=== PATIENT | female | born 1970 | race Caucasian/White ===

== ENCOUNTER → 2016-09-12 | Outpatient (REF) | payer BC ==
[2016-09-12 13:43] LABS: EOS # 0.1 K/mm3 (0.0-0.50); LARGE UNSTAINED CELL # 0.1 K/mm3 (0.0-0.4); LYMPH # 1.2 K/mm3 (1.5-4.5); MEAN CORPUSCULAR HEMOGLOBIN 31.1 pg (27.0-33.0); MEAN CORPUSCULAR HGB CONC 33.4 g/dl (32.0-36.5); MEAN CORPUSCULAR VOLUME 93.1 fl (80.0-96.0); MONO # 0.2 K/mm3 (0.0-0.8); MONO % 6.3 % (0.0-5.0); NEUTROPHILS # 1.7 K/mm3 (1.8-7.7); NEUTROPHILS % 53.7 % (36.0-66.0); PLATELET COUNT, AUTOMATED 153 k/mm3 (150-450); RED CELL DISTRIBUTION WIDTH 12.9 % (11.5-14.5); WHITE BLOOD COUNT 3.2 K/mm3 (4.0-10.0)
[2016-09-12 13:46] LABS: ALBUMIN 3.4 GM/DL (3.2-5.2); ALBUMIN/GLOBULIN RATIO 1.26 (1.00-1.93); ALKALINE PHOSPHATASE 76 U/L (45-117); ALT/SGPT 17 U/L (12-78); ANION GAP 7 MEQ/L (8-16); AST/SGOT 9 U/L (15-37); BILIRUBIN,TOTAL 0.4 MG/DL (0.2-1.0); BLOOD UREA NITROGEN 13 MG/DL (7-18); CALCIUM LEVEL 8.3 MG/DL (8.5-10.1); CARBON DIOXIDE LEVEL 29 MEQ/L (21-32); CHLORIDE LEVEL 107 MEQ/L (98-107); CREATININE FOR GFR 0.72 MG/DL (0.55-1.02); FERRITIN 46 NG/ML (8-252); GLOMERULAR FILTRATION RATE > 60.0 (>58); GLUCOSE, FASTING 51 MG/DL (70-105); MAGNESIUM LEVEL 1.9 MG/DL (1.8-2.4); PERCENT SATURATION 36.2 % (13.2-37.4); POTASSIUM SERUM 4.2 MEQ/L (3.5-5.1); SODIUM LEVEL 143 MEQ/L (136-145); TOTAL IRON BINDING CAPACITY 293 UG/DL (250-450); TOTAL PROTEIN 6.1 GM/DL (6.4-8.2)
[2016-09-13 11:44] LABS: PRETREATED FOLATE FOR RBCFOL 9.3 NG/ML
== END ==
LOC: M SFHCPLAZ 09:46
PROVIDERS: ATTEND Family Medicine
DX: D50.9 Iron deficiency anemia, unspecified (principal); E83.00 Disorder of copper metabolism, unspecified; E55.9 Vitamin D deficiency, unspecified; E16.1 Other hypoglycemia; E53.8 Deficiency of other specified B group vitamins; Z98.84 Bariatric surgery status

== ENCOUNTER → 2018-03-01 | Outpatient (CLI) | payer BC | LOC: M LAB 18:06 | DX: M47.22 Other spondylosis with radiculopathy, cervical region (principal) | CPT/HCPCS: 72052 ==

== ENCOUNTER → 2018-03-02 | Outpatient (CLI) | payer BC ==
[2018-03-02 08:24] LABS: BASO % 0.9 % (0.0-1.0); EOS # 0.1 10^3/uL (0.0-0.50); EOS % 3.1 % (0.0-3.0); HEMATOCRIT 36.4 % (36.0-47.0); HEMOGLOBIN 11.8 g/dl (12.0-15.5); IMMATURE GRANULOCYTE % 0.3 % (0-3.0); LYMPH % 31.5 % (24.0-44.0); MEAN CORPUSCULAR HEMOGLOBIN 28.3 pg (27.0-33.0); MEAN CORPUSCULAR HGB CONC 32.4 g/dl (32.0-36.5); MEAN CORPUSCULAR VOLUME 87.3 fl (80.0-96.0); MONO # 0.2 10^3/uL (0.0-0.8); MONO % 7.2 % (0.0-5.0); NEUTROPHILS # 1.8 10^3/uL (1.8-7.7); PLATELET COUNT, AUTOMATED 211 10^3/uL (150-450); RED BLOOD COUNT 4.17 10^6/uL (4.00-5.40); RED CELL DISTRIBUTION WIDTH 12.9 % (11.5-14.5); WHITE BLOOD COUNT 3.2 10^3/uL (4.0-10.0)
[2018-03-02 08:25] LABS: HEMATOCRIT 36.4 % (36.0-47.0)
[2018-03-02 08:58] LABS: ALBUMIN 3.5 GM/DL (3.2-5.2); ALBUMIN/GLOBULIN RATIO 1.25 (1.00-1.93); ALKALINE PHOSPHATASE 67 U/L (45-117); ALT/SGPT 14 U/L (12-78); ANION GAP 7 MEQ/L (8-16); AST/SGOT 12 U/L (7-37); BILIRUBIN,TOTAL 0.4 MG/DL (0.2-1.0); BLOOD UREA NITROGEN 13 MG/DL (7-18); CALCIUM LEVEL 8.6 MG/DL (8.5-10.1); CARBON DIOXIDE LEVEL 28 MEQ/L (21-32); CHLORIDE LEVEL 109 MEQ/L (98-107); CREATININE FOR GFR 0.82 MG/DL (0.55-1.30); FERRITIN 8 NG/ML (8-252); GLOMERULAR FILTRATION RATE > 60.0 (>58); GLUCOSE, FASTING 81 MG/DL (70-100); IRON (FE) 91 UG/DL (50-170); PERCENT SATURATION 25.1 % (13.2-45.0); POTASSIUM SERUM 4.2 MEQ/L (3.5-5.1); SODIUM LEVEL 144 MEQ/L (136-145); TOTAL IRON BINDING CAPACITY 363 UG/DL (250-450); TOTAL PROTEIN 6.3 GM/DL (6.4-8.2)
[2018-03-02 11:01] LABS: TOTAL 25(OH) VITAMIN D 20.7 NG/ML (30.0-100.0)
[2018-03-02 11:30] LABS: RBC FOLATE 980.8 NG/ML (280-791)
[2018-03-08 11:15] LABS: COPPER, RBC 0.52 ug/mL (0.50-1.00)
[2018-03-08 11:15] LABS: INSULIN LEVEL 3.6 uIU/mL (2.6-24.9)
== END ==
LOC: M LAB 07:15
DX: E53.8 Deficiency of other specified B group vitamins (principal); D50.9 Iron deficiency anemia, unspecified; E16.1 Other hypoglycemia; E83.00 Disorder of copper metabolism, unspecified; E51.9 Thiamine deficiency, unspecified
CPT/HCPCS: 82525

== ENCOUNTER → 2019-12-09 | Outpatient (CLI) | payer SELFPAY ==
[~2019-12-09] MED LIST: AMMO12CR7 TOP; BENA25CA4 PO; CYAN1000VL; D 50CAP PO
== END ==
LOC: M LABSMTC 11:57
PROVIDERS: ATTEND Pediatrics
DX: Z20.828 Contact with and (suspected) exposure to other viral communicable diseases (principal); Z11.59 Encounter for screening for other viral diseases

== ENCOUNTER → 2021-04-29 | Outpatient (CLI) | payer OTHER, SELFPAY ==
[~2021-04-29] MED LIST changes: +BARIUM SULFATE 700 MG TABLET (E-Z-DISK) As Ordered ONE; +E-Z-PAQUE 96% w/w SUSP 176GM BTL As Ordered ONE; +VARIBAR NECTAR 40% w/v 240ML SUSP BTL As Ordered ONE; +VARIBAR PUDDING 40% w/v 230ML TUBE As Ordered ONE
== END ==
LOC: M RAD 08:00
PROVIDERS: ATTEND Otolaryngology
DX: R47.02 Dysphasia (principal)

== ENCOUNTER → 2021-05-20 | Outpatient (CLI) | payer OTHER ==
[~2021-05-20] MED LIST changes: -BARIUM SULFATE 700 MG TABLET (E-Z-DISK) As Ordered ONE; -E-Z-PAQUE 96% w/w SUSP 176GM BTL As Ordered ONE; -VARIBAR NECTAR 40% w/v 240ML SUSP BTL As Ordered ONE; -VARIBAR PUDDING 40% w/v 230ML TUBE As Ordered ONE
[2021-05-20 15:16] LABS: BASO # 0.1 10^3/uL (0.0-0.2); BASO % 1.3 % (0.0-1.0); EOS # 0.3 10^3/uL (0.0-0.5); EOS % 4.8 % (0.0-3.0); HEMATOCRIT 30.5 % (36.0-47.0); HEMOGLOBIN 8.2 g/dl (12.0-15.5); LYMPH # 1.8 10^3/uL (1.5-5.0); LYMPH % 33.1 % (24.0-44.0); MEAN CORPUSCULAR HEMOGLOBIN 18.4 pg (27.0-33.0); MEAN CORPUSCULAR HGB CONC 26.9 g/dl (32.0-36.5); MEAN CORPUSCULAR VOLUME 68.4 fl (80.0-96.0); MONO # 0.5 10^3/uL (0.0-0.8); MONO % 9.1 % (2.0-8.0); NEUTROPHILS # 2.7 10^3/uL (1.5-8.5); NEUTROPHILS % 50.8 % (36.0-66.0); PLATELET COUNT, AUTOMATED 402 10^3/uL (150-450); RED BLOOD COUNT 4.46 10^6/uL (4.00-5.40); WHITE BLOOD COUNT 5.4 10^3/uL (4.0-10.0)
[2021-05-20 15:38] LABS: BLOOD UREA NITROGEN 6 MG/DL (7-18); CALCIUM LEVEL 8.9 MG/DL (8.5-10.1); CARBON DIOXIDE LEVEL 27 MEQ/L (21-32); CHLORIDE LEVEL 108 MEQ/L (98-107); CREATININE FOR GFR 0.96 MG/DL (0.55-1.30); GLOMERULAR FILTRATION RATE > 60.0 (>51); GLUCOSE, FASTING 83 MG/DL (70-100); POTASSIUM SERUM 4.1 MEQ/L (3.5-5.1); SODIUM LEVEL 141 MEQ/L (136-145)
== END ==
LOC: M PLALAB 12:31
PROVIDERS: ATTEND Physician Assistant
DX: A04.5 Campylobacter enteritis (principal); D50.9 Iron deficiency anemia, unspecified; A08.0 Rotaviral enteritis

== ENCOUNTER 2021-05-24 10:30 | Outpatient (CLI) | payer OTHER ==
[~2021-05-24] VITALS: Ht 160 cm; Wt 70.2 kg
[~2021-05-24 10:30] MED LIST changes: +ALBUTEROL SULFATE 2.5 MG/0.5 ML INH NEB SOLN INH PRN; +EPINEPHrine INJ 1 MG/ML 1ML AMP IM PRN; +diphenhydrAMINE 50MG/ML VIAL (J1200) IV PRN; +methylPREDNISolone 125MG 2ML VIAL IV PRN
[2021-05-24] MEDS ORDERED: NS 1,000 ML IV SCH (12:15)
[2021-05-24] MEDS ORDERED: FERRIC CARBOXYMALTOSE INJ 750 MG, VIAL MATE ADAPTER 1 EACH in NS 250 ML IV ONE (12:15)
[2021-05-24 12:28] VITALS: BP 142/66
[2021-05-24 13:51] VITALS: BP 114/57
== END 2021-05-24 13:53 | disposition home or self-care (01) ==
LOC: M INFU 10:30
PROVIDERS: ATTEND Physician Assistant
DX: D50.9 Iron deficiency anemia, unspecified (principal)
CPT/HCPCS: 96365; J1439

== ENCOUNTER → 2021-06-19 | Outpatient (CLI) | payer OTHER ==
[~2021-06-19] MED LIST changes: -ALBUTEROL SULFATE 2.5 MG/0.5 ML INH NEB SOLN INH PRN; -EPINEPHrine INJ 1 MG/ML 1ML AMP IM PRN; -diphenhydrAMINE 50MG/ML VIAL (J1200) IV PRN; -methylPREDNISolone 125MG 2ML VIAL IV PRN
[2021-06-19 13:51] LABS: BASO # 0.1 10^3/uL (0.0-0.2); BASO % 1.4 % (0.0-1.0); EOS # 0.1 10^3/uL (0.0-0.5); EOS % 2.1 % (0.0-3.0); HEMATOCRIT 35.5 % (36.0-47.0); HEMATOCRIT 36.9 % (36.0-47.0); HEMOGLOBIN 10.5 g/dl (12.0-15.5); LYMPH # 1.4 10^3/uL (1.5-5.0); LYMPH % 32.8 % (24.0-44.0); MEAN CORPUSCULAR HEMOGLOBIN 23.2 pg (27.0-33.0); MEAN CORPUSCULAR HGB CONC 29.6 g/dl (32.0-36.5); MEAN CORPUSCULAR VOLUME 78.5 fl (80.0-96.0); MONO # 0.3 10^3/uL (0.0-0.8); MONO % 6.6 % (2.0-8.0); NEUTROPHILS # 2.4 10^3/uL (1.5-8.5); NEUTROPHILS % 57.1 % (36.0-66.0); PLATELET COUNT, AUTOMATED 207 10^3/uL (150-450); RED BLOOD COUNT 4.52 10^6/uL (4.00-5.40); WHITE BLOOD COUNT 4.3 10^3/uL (4.0-10.0)
[2021-06-19 14:11] LABS: HEMOGLOBIN A1c 4.5 %
[2021-06-19 14:27] LABS: ALBUMIN 3.4 GM/DL (3.2-5.2); ALT/SGPT 15 U/L (12-78); BILIRUBIN,TOTAL 0.3 MG/DL (0.2-1.0); BLOOD UREA NITROGEN 11 MG/DL (7-18); CALCIUM LEVEL 8.6 MG/DL (8.5-10.1); CARBON DIOXIDE LEVEL 29 MEQ/L (21-32); CHLORIDE LEVEL 110 MEQ/L (98-107); CHOLESTEROL LEVEL 171 MG/DL (<200); CHOLESTEROL RISK RATIO 2.442 (<5); CREATININE FOR GFR 0.69 MG/DL (0.55-1.30); FERRITIN 40 NG/ML (8-252); FREE T4 0.95 NG/DL (0.76-1.46); GLOMERULAR FILTRATION RATE > 60.0 (>51); GLUCOSE, FASTING 88 MG/DL (70-100); HDL CHOLESTEROL 70 MG/DL (>40); LDL CHOLESTEROL 90 MG/DL (<100); NON-HDL-C 101 MG/DL; POTASSIUM SERUM 4.4 MEQ/L (3.5-5.1); SODIUM LEVEL 142 MEQ/L (136-145); TOTAL PROTEIN 6.2 GM/DL (6.4-8.2); TRIGLYCERIDES LEVEL 56 MG/DL (<150)
[2021-06-19 14:50] LABS: MICROCYTOSIS 1+; OVALOCYTES 1+; POIKILOCYTOSIS 1+
[2021-06-19 14:51] LABS: PLATELET ESTIMATE NORMAL (NORMAL)
[2021-06-21 11:54] LABS: PTH INTACT 143.8 PG/ML (18.5-88.0); TOTAL 25(OH) VITAMIN D 9.9 NG/ML (30.0-100.0)
[2021-06-21 11:55] LABS: VITAMIN B12 LEVEL 176 PG/ML (247-911)
== END ==
LOC: M LAB 13:25
PROVIDERS: ATTEND Family Medicine
DX: E53.8 Deficiency of other specified B group vitamins (principal); E51.9 Thiamine deficiency, unspecified; D50.9 Iron deficiency anemia, unspecified; E66.3 Overweight

== ENCOUNTER → 2023-03-27 | Outpatient (CLI) | payer OTHER ==
[2023-03-27 14:14] LABS: BASO # 0.1 10^3/uL (0.0-0.2); BASO % 1.6 % (0.0-1.0); EOS # 0.1 10^3/uL (0.0-0.5); EOS % 2.5 % (0.0-3.0); HEMATOCRIT 38.9 % (36.0-47.0); LYMPH % 38.2 % (24.0-44.0); MEAN CORPUSCULAR HEMOGLOBIN 25.2 pg (27.0-33.0); MEAN CORPUSCULAR HGB CONC 30.8 g/dl (32.0-36.5); MEAN CORPUSCULAR VOLUME 81.7 fl (80.0-96.0); MONO # 0.5 10^3/uL (0.0-0.8); MONO % 9.6 % (2.0-8.0); NEUTROPHILS # 2.5 10^3/uL (1.5-8.5); NEUTROPHILS % 47.7 % (36.0-66.0); PLATELET COUNT, AUTOMATED 246 10^3/uL (150-450); RED BLOOD COUNT 4.76 10^6/uL (4.00-5.40); WHITE BLOOD COUNT 5.1 10^3/uL (4.0-10.0)
[2023-03-27 14:26] LABS: HEMATOCRIT 39.2 % (36.0-47.0)
[2023-03-27 14:38] LABS: ALBUMIN 3.8 G/DL (3.2-5.2); ALKALINE PHOSPHATASE 87 U/L (46-116); ALT/SGPT 15 U/L (7.0-40); AST/SGOT 19 U/L (<34); BILIRUBIN,TOTAL 0.4 MG/DL (0.3-1.2); BLOOD UREA NITROGEN 13 MG/DL (9-23); CALCIUM LEVEL 8.7 MG/DL (8.5-10.1); CARBON DIOXIDE LEVEL 28 MMOL/L (20-31); CHLORIDE LEVEL 107 MMOL/L (98-107); CREATININE FOR GFR 0.72 MG/DL (0.55-1.30); GLOMERULAR FILTRATION RATE > 60.0 (>51); GLUCOSE, FASTING 75 MG/DL (60-100); POTASSIUM SERUM 4.3 MMOL/L (3.5-5.1); SODIUM LEVEL 140 MMOL/L (136-145)
[2023-03-27 14:39] LABS: FREE T4 1.07 NG/DL (0.89-1.76); PTH INTACT 121.1 PG/ML (18.5-88.0)
[2023-03-27 14:40] LABS: FERRITIN 7.1 NG/ML (7.3-270.7); FOLLICLE STIMULATING HORMONE 35.8 mIU/ML; LUTEINIZING HORMONE 20.8 mIU/ML; THYROID STIMULATING HORMONE 2.436 uIU/ML (0.55-4.78)
[2023-03-27 14:41] LABS: VITAMIN B12 LEVEL 271 PG/ML (211-911)
== END ==
LOC: M PLALAB 11:17
PROVIDERS: ATTEND Family Medicine
DX: D50.9 Iron deficiency anemia, unspecified (principal)

== ENCOUNTER → 2023-03-28 | Outpatient (CLI) | payer OTHER | LOC: M WHC 07:35 | PROVIDERS: ATTEND Family Medicine | DX: Z12.31 Encounter for screening mammogram for malignant neoplasm of breast (principal); M81.0 Age-related osteoporosis without current pathological fracture ==

== ENCOUNTER → 2023-06-26 | Outpatient (REF) | payer BC, OTHER | LOC: M SFHCWAGY 17:36 | PROVIDERS: ATTEND Nurse Practitioner Family | DX: Z12.4 Encounter for screening for malignant neoplasm of cervix (principal) | CPT/HCPCS: 87624; G0123 ==

== ENCOUNTER → 2023-07-31 | Outpatient (REF) | payer BC | LOC: M SFHCPLAZ 12:44 | PROVIDERS: ATTEND Family Medicine | DX: E55.9 Vitamin D deficiency, unspecified (principal); E83.00 Disorder of copper metabolism, unspecified; D50.9 Iron deficiency anemia, unspecified; E53.8 Deficiency of other specified B group vitamins; E16.1 Other hypoglycemia ==

== ENCOUNTER → 2023-09-22 | Outpatient (CLI) | payer BC ==
[2023-09-22 12:17] LABS: BASO # 0.1 10^3/uL (0.0-0.2); BASO % 1.7 % (0.0-1.0); EOS # 0.5 10^3/uL (0.0-0.5); EOS % 9.8 % (0.0-3.0); HEMATOCRIT 43.1 % (36.0-47.0); HEMOGLOBIN 14.5 g/dl (12.0-15.5); LYMPH # 1.6 10^3/uL (1.5-5.0); LYMPH % 33.6 % (24.0-44.0); MEAN CORPUSCULAR HEMOGLOBIN 31.3 pg (27.0-33.0); MEAN CORPUSCULAR HGB CONC 33.7 g/dl (32.0-36.5); MEAN CORPUSCULAR VOLUME 92.7 fl (80.0-96.0); MONO # 0.3 10^3/uL (0.0-0.8); MONO % 5.8 % (2.0-8.0); NEUTROPHILS # 2.3 10^3/uL (1.5-8.5); NEUTROPHILS % 48.9 % (36.0-66.0); PLATELET COUNT, AUTOMATED 189 10^3/uL (150-450); RED BLOOD COUNT 4.64 10^6/uL (4.00-5.40); WHITE BLOOD COUNT 4.8 10^3/uL (4.0-10.0)
[2023-09-22 12:37] LABS: HEMOGLOBIN A1c 5.1 % (4.0-6.0)
[2023-09-22 12:44] LABS: ALBUMIN 3.7 G/DL (3.2-5.2); ALKALINE PHOSPHATASE 80 U/L (46-116); ALT/SGPT 23 U/L (7.0-40); AST/SGOT 14 U/L (<34); BILIRUBIN,TOTAL 0.5 MG/DL (0.3-1.2); BLOOD UREA NITROGEN 12 MG/DL (9-23); CALCIUM LEVEL 9.3 MG/DL (8.5-10.1); CARBON DIOXIDE LEVEL 32 MMOL/L (20-31); CHLORIDE LEVEL 105 MMOL/L (98-107); CHOLESTEROL LEVEL 187 MG/DL (<200); CHOLESTEROL RISK RATIO 2.37 (<5); CREATININE FOR GFR 0.84 MG/DL (0.55-1.30); GLOMERULAR FILTRATION RATE > 60.0 (>51); GLUCOSE, FASTING 91 MG/DL (60-100); HDL CHOLESTEROL 78.8 MG/DL (>40); LDL CHOLESTEROL 97.2 MG/DL (<100); NON-HDL-C 108.2 MG/DL; POTASSIUM SERUM 4.8 MMOL/L (3.5-5.1); PTH INTACT 58.5 PG/ML (18.5-88.0); SODIUM LEVEL 143 MMOL/L (136-145); TOTAL PROTEIN 6.5 G/DL (5.7-8.2); TRIGLYCERIDES LEVEL 55 MG/DL (<150)
[2023-09-22 12:46] LABS: FERRITIN 27.1 NG/ML (7.3-270.7); TOTAL 25(OH) VITAMIN D 24.4 NG/ML (20.0-100.0); VITAMIN B12 LEVEL 250 PG/ML (211-911)
[2023-09-26 09:07] LABS: COPPER, RBC 0.64 ug/mL (0.50-1.00)
== END ==
LOC: M LAB 11:26
PROVIDERS: ATTEND Family Medicine
DX: E55.9 Vitamin D deficiency, unspecified (principal); E83.00 Disorder of copper metabolism, unspecified; D50.9 Iron deficiency anemia, unspecified; E53.8 Deficiency of other specified B group vitamins

== ENCOUNTER 2023-10-09 11:36 | Outpatient (CLI) | payer BC ==
[~2023-10-09] VITALS: Ht 160 cm; Wt 78.0 kg
[~2023-10-09 11:36] MED LIST changes: +ALBUTEROL SULFATE 2.5MG/0.5ML INH NEB SOLN INH PRN; +EPINEPHrine INJ 1 MG/ML 1ML AMP IM PRN; +NS 1,000 ML IV SCH; +diphenhydrAMINE 50MG/ML VIAL IV PRN; +methylPREDNISolone 125MG 2ML VIAL IV PRN
[2023-10-09 11:45] VITALS: BP 134/71; O2SAT 100
[2023-10-09] MEDS: FERRIC CARBOXYMALTOSE INJ 750 MG in NS 250 ML (>50kg) IV ONE (11:49)
[2023-10-09 13:05] VITALS: BP 119/66; O2SAT 99
== END 2023-10-09 13:05 | disposition home or self-care (01) ==
LOC: M INFU 11:36
PROVIDERS: ATTEND Family Medicine
DX: D50.9 Iron deficiency anemia, unspecified (principal)
CPT/HCPCS: 96365; J1439

== ENCOUNTER → 2024-02-01 | Outpatient (REF) | payer BC ==
[~2024-02-01] MED LIST changes: -ALBUTEROL SULFATE 2.5MG/0.5ML INH NEB SOLN INH PRN; -EPINEPHrine INJ 1 MG/ML 1ML AMP IM PRN; -NS 1,000 ML IV SCH; -diphenhydrAMINE 50MG/ML VIAL IV PRN; -methylPREDNISolone 125MG 2ML VIAL IV PRN
== END ==
LOC: M SFHCPLAZ 10:24
PROVIDERS: ATTEND Family Medicine
DX: Z53.9 Procedure and treatment not carried out, unspecified reason (principal)

== ENCOUNTER 2024-02-23 23:16 | Emergency (ER) | payer BC ==
[~2024-02-23] VITALS: Ht 160 cm; Wt 67.5 kg
[2024-02-23 23:41] LABS: BASO # 0.1 10^3/uL (0.0-0.2); BASO % 1.3 % (0.0-1.0); EOS # 0.3 10^3/uL (0.0-0.5); EOS % 5.5 % (0.0-3.0); HEMATOCRIT 40.7 % (36.0-47.0); HEMOGLOBIN 13.8 g/dl (12.0-15.5); LYMPH # 1.9 10^3/uL (1.5-5.0); LYMPH % 30.2 % (24.0-44.0); MEAN CORPUSCULAR HEMOGLOBIN 31.7 pg (27.0-33.0); MEAN CORPUSCULAR HGB CONC 33.9 g/dl (32.0-36.5); MEAN CORPUSCULAR VOLUME 93.6 fl (80.0-96.0); MONO # 0.5 10^3/uL (0.0-0.8); MONO % 8.3 % (2.0-8.0); NEUTROPHILS # 3.3 10^3/uL (1.5-8.5); NEUTROPHILS % 54.4 % (36.0-66.0); PLATELET COUNT, AUTOMATED 176 10^3/uL (150-450); RED BLOOD COUNT 4.35 10^6/uL (4.00-5.40); WHITE BLOOD COUNT 6.1 10^3/uL (4.0-10.0)
[2024-02-24 00:19] LABS: CK-MB VALUE MASS 1.3 NG/ML (<3.6); LIPASE 47 U/L (12-53)
[2024-02-24 00:21] LABS: BLOOD UREA NITROGEN 14 MG/DL (9-23); CALCIUM LEVEL 9.5 MG/DL (8.5-10.1); CARBON DIOXIDE LEVEL 32 MMOL/L (20-31); CHLORIDE LEVEL 107 MMOL/L (98-107); CPK CREATINE PHOSPHOKINASE 83 U/L (34-145); CREATININE FOR GFR 0.96 MG/DL (0.55-1.30); GLOMERULAR FILTRATION RATE > 60.0 (>51); GLUCOSE, FASTING 78 MG/DL (60-100); MB/CK RELATIVE INDEX 1.56 (< OR =4); POTASSIUM SERUM 4.2 MMOL/L (3.5-5.1); SODIUM LEVEL 141 MMOL/L (136-145)
[2024-02-24 01:41] LABS: CK-MB VALUE MASS < 1.0 NG/ML (<3.6)
[2024-02-24 01:43] LABS: CPK CREATINE PHOSPHOKINASE 80 U/L (34-145); MB/CK RELATIVE INDEX 1.25 (< OR =4)
[2024-02-24] MEDS: KETOROLAC 30 MG/ML 1ML VIAL IV ONE (02:00)
[2024-02-24] MEDS ORDERED: NAPR-837 PO (04:23)
[2024-02-24 04:56] VITALS: BP 118/74; TEMP 97.3; O2SAT 98
== END 2024-02-24 04:57 | disposition home or self-care (01) ==
LOC: M ED 23:16
DX: M94.0 Chondrocostal junction syndrome [Tietze] (principal); K21.9 Gastro-esophageal reflux disease without esophagitis; F32.9 Major depressive disorder, single episode, unspecified; F41.1 Generalized anxiety disorder; Z79.1 Long term (current) use of non-steroidal anti-inflammatories (NSAID)
CPT/HCPCS: 71045; 80048; 82550; 82553; 83690; 84484; 85025; 93005; 93041; 94760; 96374; 99284; J1885

== ENCOUNTER 2024-11-20 07:06 | Outpatient (CLI) | payer OTHER ==
[~2024-11-20] VITALS: Ht 160 cm; Wt 81.8 kg
[~2024-11-20 07:06] MED LIST changes: +ALBUTEROL SULFATE 2.5 MG/0.5 ML INH CONCENTRATE NEB SOLN INH PRN; +AMMO12CR4 TOP; -AMMO12CR7 TOP; +EPINEPHrine INJ 1 MG/ML 1ML AMP IM PRN; +NAPR-837 PO; +diphenhydrAMINE 50 MG/ML VIAL IV PRN
[2024-11-20 07:20] VITALS: BP 127/88; O2SAT 100
[2024-11-20] MEDS: FERRIC CARBOXYMALTOSE 750 MG (VIAL MATE) IN 100ML NS IV ONE (07:28)
[2024-11-20 07:59] VITALS: BP 140/84; O2SAT 100
== END 2024-11-20 08:00 | disposition home or self-care (01) ==
LOC: M INFU 07:06
PROVIDERS: ATTEND Family Medicine
DX: D50.9 Iron deficiency anemia, unspecified (principal)
CPT/HCPCS: 96365; J1439

== ENCOUNTER → 2024-12-30 | Outpatient (CLI) | payer OTHER ==
[~2024-12-30] MED LIST changes: -ALBUTEROL SULFATE 2.5 MG/0.5 ML INH CONCENTRATE NEB SOLN INH PRN; -EPINEPHrine INJ 1 MG/ML 1ML AMP IM PRN; -diphenhydrAMINE 50 MG/ML VIAL IV PRN
[2024-12-30 13:45] LABS: BASO # 0.1 10^3/uL (0.0-0.2); BASO % 1.4 % (0.0-1.0); EOS # 0.4 10^3/uL (0.0-0.5); EOS % 6.8 % (0.0-3.0); LYMPH # 1.6 10^3/uL (1.5-5.0); LYMPH % 28.5 % (24.0-44.0); MONO # 0.4 10^3/uL (0.0-0.8); MONO % 7.0 % (2.0-8.0); NEUTROPHILS # 3.1 10^3/uL (1.5-8.5); NEUTROPHILS % 55.9 % (36.0-66.0); PLATELET COUNT, AUTOMATED 203 10^3/uL (150-450)
[2024-12-30 14:10] LABS: ESTIMATED AVERAGE GLUCOSE 103.0 MG/DL (60-110)
[2024-12-30 14:24] LABS: FREE T4 1.2 NG/DL (0.89-1.76)
[2024-12-30 14:26] LABS: TOTAL 25(OH) VITAMIN D 41.1 NG/ML (20.0-100.0)
[2024-12-30 14:27] LABS: VITAMIN B12 LEVEL 226.0 PG/ML (211-911)
[2024-12-30 14:39] LABS: ALT/SGPT 20.0 U/L (7.0-40); AST/SGOT 18.0 U/L (<34); CALCIUM LEVEL 9.6 MG/DL (8.5-10.1); CARBON DIOXIDE LEVEL 31.0 MMOL/L (20-31); CHLORIDE LEVEL 105.0 MMOL/L (98-107); CREATININE FOR GFR 0.95 MG/DL (0.55-1.30); GLOMERULAR FILTRATION RATE 70.8 (>51); POTASSIUM SERUM 4.9 MMOL/L (3.5-5.1); SODIUM LEVEL 145.0 MMOL/L (136-145)
[2024-12-30 15:26] LABS: PTH INTACT 79.2 PG/ML (18.5-88.0)
== END ==
LOC: M PLALAB 11:49
PROVIDERS: ATTEND Family Medicine
DX: E55.9 Vitamin D deficiency, unspecified (principal); D50.9 Iron deficiency anemia, unspecified; R73.01 Impaired fasting glucose; E66.811 Obesity, class 1; E53.8 Deficiency of other specified B group vitamins